=== PATIENT | female | born 1970 | race African-American/Black ===

== ENCOUNTER 2023-01-14 10:37 | Inpatient (IN) | payer BC ==
[~2023-01-14] VITALS: Ht 165.1 cm; Wt 83.5 kg
[2023-01-14 11:29] LABS: BASOPHILS % 0.2 % (0.0-2.0); EOSINOPHILS % 0.3 % (0.0-5.0); HEMATOCRIT. 40.7 % (36.0-48.0); HEMOGLOBIN. 13.2 g/dL (12.0-16.0); LYMPHOCYTES % 10.4 % (20.0-50.0); MEAN CORPUSCULAR HEMOGLOBIN 31.6 pg (28.0-32.0); MEAN CORPUSCULAR HGB CONC 32.5 g/dL (31.0-37.0); MEAN CORPUSCULAR VOLUME 97.3 fL (81.0-99.0); MEAN PLATELET VOLUME 8.3 fl (7.4-10.4); MONOCYTES % 3.6 % (2.0-8.0); NEUTROPHILS % 85.5 % (40.0-76.0); PLATELET 246 x1000/uL (130-400); RED BLOOD CELL COUNT 4.19 mill/uL (4.2-5.4); RED CELL DISTRIBUTION WIDTH 13.6 % (11.6-14.6); WHITE BLOOD COUNT 12.4 x1000/uL (4.5-11.0)
[2023-01-14 11:43] LABS: ALANINE AMINOTRANSFERASE 14 IU/L (10-49); ALBUMIN 4.4 g/dL (3.2-4.8); ASPARTATE AMINOTRANSFERASE 18 IU/L (<34); BILIRUBIN TOTAL 0.5 mg/dL (0.1-1.0); CALCIUM 9.3 mg/dL (8.7-10.4); CARBON DIOXIDE 18 mEq/L (21-32); CHLORIDE 111 mEq/L (98-107); CREATININE 0.9 mg/dL (0.6-1.0); GLUCOSE 139 mg/dL (70-105); POTASSIUM 3.8 mEq/L (3.5-5.1); PROTEIN TOTAL 7.8 g/dL (6.0-8.3); SODIUM 140 mEq/L (136-145); UREA NITROGEN BLOOD 12 mg/dL (9-23)
[2023-01-14] MEDS ORDERED: KETOROLAC 30MG/ML VIAL IV ONE (12:15)
[2023-01-14] MEDS ORDERED: ONDANSETRON HCL 4MG/2ML INJ IV ONE (12:15)
[2023-01-14] MEDS ORDERED: SODIUM CHLORIDE 0.9% 1,000 ML IV ONE (12:15)
[2023-01-14 12:46] LABS: HCG SCREEN NEGATIVE
[2023-01-14] MEDS ORDERED: IOHEXOL-300 100 ML BOTTLE ONE ×2 (13:51→18:18)
[2023-01-14] MEDS ORDERED: MORPHINE SULFATE 4 MG/ML CPJ (NOT FOR IM USE) IV ONE (14:15)
[2023-01-14] MEDS ORDERED: PIPERACILLIN/TAZOBACTAM 3.375GM/50ML PREMIX IV ONE (14:15)
[2023-01-14] MEDS ORDERED: PIPERACILLIN/TAZ 3.375G PREMIX 50 ML IV NR (14:30)
[2023-01-14] MEDS ORDERED: KETOROLAC 30MG/ML VIAL IV NR (15:30)
[2023-01-14] MEDS ORDERED: ONDANSETRON HCL 4MG/2ML INJ IV NR (15:30)
[2023-01-14] MEDS ORDERED: MORPHINE SULFATE 4 MG/ML CPJ (NOT FOR IM USE) IV NR (15:30)
[2023-01-14] MEDS ORDERED: FENTANYL CITRATE/PF 50MCG/ML 2ML VIAL IV PRN (17:30)
[2023-01-14] MEDS ORDERED: ONDANSETRON HCL 4MG/2ML INJ IV PRN (17:30)
[2023-01-14] MEDS ORDERED: MEPERIDINE HCL/PF 25MG/ML CPJ IV PRN (17:30)
[2023-01-14 18:42] VITALS: BP 151/88; PULSE 58; RESP 20; TEMP 95.9
[2023-01-14] MEDS ORDERED: PROPOFOL 200MG/20ML VIAL IV ONE (19:04)
[2023-01-14] MEDS ORDERED: MIDAZOLAM HCL 2 MG/2 ML VIAL ONE (19:06)
[2023-01-14] MEDS ORDERED: FENTANYL CITRATE/PF 50MCG/ML 2ML VIAL ONE (19:09)
[2023-01-14] MEDS ORDERED: CEFAZOLIN SODIUM 1000MG/VIAL ONE (19:27)
[2023-01-14] MEDS ORDERED: ONDANSETRON HCL 4MG/2ML INJ ONE (19:27)
[2023-01-14] MEDS ORDERED: KETOROLAC 30MG/ML VIAL ONE (19:28)
[2023-01-14] MEDS ORDERED: DEXAMETHASONE 4MG/ML 1ML VIAL ONE (19:28)
[2023-01-14] MEDS ORDERED: SUCCINYLCHOLINE CHLORIDE 200MG/10ML IV ONE (19:31)
[2023-01-14] MEDS ORDERED: KETOROLAC 15MG/ML VIAL IV NR (20:00)
[2023-01-14] MEDS: HYDROMORPHONE HCL/PF 2MG/ML CPJ IV PRN ×2 (20:56→21:18)
[2023-01-14 22:11] VITALS: BP 174/134; PULSE 72; RESP 20; TEMP 97.9
[2023-01-14] MEDS ORDERED: CLONIDINE 0.1MG TABLET PO PRN (22:30)
[2023-01-14] MEDS ORDERED: KETOROLAC 30MG/ML VIAL IV PRN (23:00)
[2023-01-15] VITALS: BP 140/70; PULSE 69; RESP 20; TEMP 97.3
[2023-01-15 04:00] VITALS: BP 140/71; RESP 60; TEMP 97.4
[2023-01-15 08:00] VITALS: BP 130/75; PULSE 70; RESP 18; TEMP 100.2
[2023-01-15] MEDS: AMLODIPINE 10MG TABLET PO SCH (08:37)
[2023-01-15] MEDS ORDERED: KETOROLAC 10MG TABLET PO PRN (10:15)
[2023-01-15] MEDS: LEVOFLOXACIN 500MG TABLET PO SCH (10:41)
[2023-01-15] MEDS: OXYBUTYNIN CHLORIDE 5MG TABLET PO SCH ×3 (10:42→20:54)
[2023-01-15] MEDS ORDERED: LEVOFLOXACIN 500MG TABLET PO SCH (11:00)
[2023-01-15 12:00] VITALS: BP 150/73; PULSE 71; RESP 19; TEMP 98.1
[2023-01-15] MEDS: HYDROCODONE/ACETAMINOPHEN 5/325MG TABLET PO PRN ×2 (13:07→20:55)
[2023-01-15] MEDS ORDERED: NALOXONE HCL 0.4MG/ML VIAL IV PRN (15:15)
[2023-01-15 16:00] VITALS: BP 142/72; PULSE 74; RESP 17; TEMP 98.6
[2023-01-15 19:06] LABS: BASOPHILS % 0.3 % (0.0-2.0); EOSINOPHILS % 0.1 % (0.0-5.0); HEMATOCRIT. 36.3 % (36.0-48.0); HEMOGLOBIN. 11.8 g/dL (12.0-16.0); LYMPHOCYTES % 13.1 % (20.0-50.0); MEAN CORPUSCULAR HEMOGLOBIN 31.6 pg (28.0-32.0); MEAN CORPUSCULAR HGB CONC 32.5 g/dL (31.0-37.0); MEAN CORPUSCULAR VOLUME 97.2 fL (81.0-99.0); MEAN PLATELET VOLUME 9.4 fl (7.4-10.4); MONOCYTES % 5.4 % (2.0-8.0); NEUTROPHILS % 81.1 % (40.0-76.0); PLATELET 217 x1000/uL (130-400); RED BLOOD CELL COUNT 3.73 mill/uL (4.2-5.4); RED CELL DISTRIBUTION WIDTH 13.3 % (11.6-14.6); WHITE BLOOD COUNT 16.7 x1000/uL (4.5-11.0)
[2023-01-15 19:18] LABS: CALCIUM 8.7 mg/dL (8.7-10.4); CARBON DIOXIDE 19 mEq/L (21-32); CHLORIDE 110 mEq/L (98-107); GLUCOSE 110 mg/dL (70-105); POTASSIUM 3.9 mEq/L (3.5-5.1); SODIUM 139 mEq/L (136-145); UREA NITROGEN BLOOD 10 mg/dL (9-23)
[2023-01-15 20:00] VITALS: BP 154/82; PULSE 77; RESP 18; TEMP 98.3
[2023-01-16] VITALS: BP 152/83; PULSE 73; RESP 18; TEMP 98.1
[2023-01-16 04:00] VITALS: BP 123/73; PULSE 76; RESP 18; TEMP 98.6
[2023-01-16] MEDS: OXYBUTYNIN CHLORIDE 5MG TABLET PO SCH ×3 (05:23→20:15)
[2023-01-16] MEDS: HYDROCODONE/ACETAMINOPHEN 5/325MG TABLET PO PRN ×3 (05:24→16:06)
[2023-01-16 08:00] VITALS: BP 141/71; PULSE 56; RESP 20; TEMP 98.7
[2023-01-16] MEDS: AMLODIPINE 10MG TABLET PO SCH (08:39)
[2023-01-16] MEDS: LEVOFLOXACIN 500MG TABLET PO SCH (11:36)
[2023-01-16 12:00] VITALS: BP 137/77; PULSE 68; RESP 18; TEMP 97.7
[2023-01-16] MEDS ORDERED: SODIUM CHLORIDE 0.45% 1,000 ML IV SCH (14:00)
[2023-01-16 16:00] VITALS: BP 132/67; PULSE 66; RESP 20; TEMP 97.1
[2023-01-16] MEDS ORDERED: IOHEXOL-300 100 ML BOTTLE ONE (17:07)
[2023-01-16] MEDS ORDERED: LIDOCAINE HCL 1% 10 MG/ML 10ML VIAL ONE (17:10)
[2023-01-16] MEDS ORDERED: DEXAMETHASONE 4MG/ML 1ML VIAL ONE (17:10)
[2023-01-16] MEDS ORDERED: ONDANSETRON HCL 4MG/2ML INJ ONE (17:10)
[2023-01-16] MEDS ORDERED: MIDAZOLAM HCL 2 MG/2 ML VIAL ONE (17:11)
[2023-01-16] MEDS ORDERED: FENTANYL CITRATE/PF 50MCG/ML 2ML VIAL ONE (17:11)
[2023-01-16] MEDS ORDERED: PROPOFOL 200MG/20ML VIAL IV ONE (17:48)
[2023-01-16] MEDS ORDERED: ROCURONIUM BROMIDE 10MG/ML VIAL 5ML IV ONE (17:48)
[2023-01-16] MEDS ORDERED: LABETALOL 5MG/ML SYR 20 MG/4 ML SYRINGE IV PRN (18:00)
[2023-01-16] MEDS ORDERED: ONDANSETRON HCL 4MG/2ML INJ IV PRN (18:00)
[2023-01-16] MEDS ORDERED: MEPERIDINE HCL/PF 25MG/ML CPJ IV PRN (18:00)
[2023-01-16] MEDS ORDERED: GLYCOPYRROLATE 0.2 MG/ML 2ML VIAL ONE (18:13)
[2023-01-16] MEDS ORDERED: NEOSTIGMINE METHYLSULFATE 1MG/ML 10 ML VIAL ONE (18:13)
[2023-01-16] MEDS ORDERED: LORAZEPAM 1MG TABLET PO PRN (18:30)
[2023-01-16] MEDS ORDERED: HYDROCODONE/ACETAMINOPHEN 10/325MG TABLET PO PRN (18:30)
[2023-01-16] MEDS ORDERED: KETOROLAC 15MG/ML VIAL IV NR (18:30)
[2023-01-16] MEDS: HYDROMORPHONE HCL/PF 2MG/ML CPJ IV PRN ×3 (18:35→18:58)
[2023-01-16 20:00] VITALS: BP 134/84; PULSE 86; RESP 18; TEMP 97
[2023-01-16] MEDS ORDERED: DIPHENHYDRAMINE 50MG CAPSULE PO PRN (21:45)
[2023-01-16] MEDS ORDERED: OXYBUTYNIN CHLORIDE 5MG TABLET PO SCH (22:00)
[2023-01-17] VITALS: BP 117/75; PULSE 63; RESP 18; TEMP 97
[2023-01-17 04:00] VITALS: BP 125/69; PULSE 70; RESP 18; TEMP 97.5
[2023-01-17] MEDS: OXYBUTYNIN CHLORIDE 5MG TABLET PO SCH (05:42)
[2023-01-17 06:54] LABS: HEMATOCRIT. 35.9 % (36.0-48.0); HEMOGLOBIN. 12.3 g/dL (12.0-16.0); MEAN CORPUSCULAR HEMOGLOBIN 32.5 pg (28.0-32.0); MEAN CORPUSCULAR HGB CONC 34.4 g/dL (31.0-37.0); MEAN CORPUSCULAR VOLUME 94.5 fL (81.0-99.0); PLATELET 223 x1000/uL (130-400); RED BLOOD CELL COUNT 3.79 mill/uL (4.2-5.4); RED CELL DISTRIBUTION WIDTH 13.2 % (11.6-14.6); WHITE BLOOD COUNT 11.2 x1000/uL (4.5-11.0)
[2023-01-17 07:27] LABS: DIFFERENTIAL COMMENT 1
[2023-01-17 08:00] VITALS: BP 134/86; PULSE 76; RESP 21; TEMP 97.6
[2023-01-17] MEDS ORDERED: LEVOFLOXACIN 500MG TABLET PO SCH (08:00)
[2023-01-17] MEDS: AMLODIPINE 10MG TABLET PO SCH (09:14)
[2023-01-17 09:39] LABS: CALCIUM 8.9 mg/dL (8.7-10.4); CARBON DIOXIDE 18 mEq/L (21-32); CHLORIDE 108 mEq/L (98-107); CREATININE 0.7 mg/dL (0.6-1.0); GLUCOSE 110 mg/dL (70-105); POTASSIUM 4.1 mEq/L (3.5-5.1); SODIUM 137 mEq/L (136-145); UREA NITROGEN BLOOD 12 mg/dL (9-23)
[2023-01-17] MEDS ORDERED: LEVO-65 MT (10:33)
[2023-01-17] MEDS ORDERED: OXYB5TAB21 MT (10:33)
[2023-01-17 12:28] VITALS: BP 135/87; PULSE 87; TEMP 98.5; O2SAT 98
[2023-01-17 20:05] LABS: PLATELET ESTIMATE NORMAL
== END 2023-01-17 13:20 | disposition home or self-care (01) | DRG 661 ==
LOC: ER 10:47 → 6EST 17:44
PROVIDERS: ADMIT Internal Medicine; ATTEND Internal Medicine
PROC: 0T768DZ Dilation of Right Ureter with Intraluminal Device, Via Natural or Artificial Opening Endoscopic (ICD-10-PCS; principal; 2023-01-16)
PROC: 0TC68ZZ Extirpation of Matter from Right Ureter, Via Natural or Artificial Opening Endoscopic (ICD-10-PCS; 2023-01-16)
PROC: BT1D1ZZ Fluoroscopy of Right Kidney, Ureter and Bladder using Low Osmolar Contrast (ICD-10-PCS; 2023-01-16)
DX: N13.6 Pyonephrosis (principal); Z87.442 Personal history of urinary calculi
CPT/HCPCS: 36415; 74018; 74177; 74430; 76000; 80048; 80053; 82360; 84703; 85025; 88305; 93005; 99291; C2617; J0330; J0690; J1100; J1170; J1885; J2175; J2250; J2270; J2405; J2543; J2704; J2710; J3010; J3490; J7030; Q0163; Q9967